=== PATIENT | male | born 1990 | race African-American/Black ===

== ENCOUNTER 2016-12-17 21:49 | Emergency (ER) | payer SELFPAY ==
[~2016-12-17] VITALS: Ht 177.8 cm; Wt 99.3 kg
[2016-12-17 22:10] VITALS: BP 148/79
[2016-12-17 22:20] LABS: BILIRUBIN,URINE NEGATIVE (NEG); GLUCOSE,URINE NEGATIVE (NEG); NITRITE,URINE NEGATIVE (NEG); PROTEIN,URINE NEGATIVE (NEG-TRACE); UROBILINOGEN,URINE 0.2 mg/dL (0.2 mg/dL)
[2016-12-17 22:33] LABS: BACTERIA,URINE 0 /HPF (0-FEW); RBC,URINE 0 /HPF (0-2); SQUAMOUS EPITHELIAL CELL,UR FEW /LPF; WBC,URINE RARE /HPF (0-4)
--- NOTE | 2016-12-17 22:33 | PHYS DOC ---
Past Medical History Past Medical History: No Pertinent History Past Surgical History: No Surgical History Alcohol Use: None Drug Use: None Adult General Chief Complaint Chief Complaint: PAIN ON URINATION HPI HPI Patient is a 26 year old male who presents with complaint of discomfort with urination. Patient states that he has been having symptoms over the past week. Patient describes the sensation as a "tickle" which happens and he is urinating. Patient also states that he has been having the sensation of needing to go more frequently. Patient admits to recent unprotected sexual contact with a single sexual partner. He does state that his sexual partner may have another sexual partners. Patient denies any groin pain, abdominal pain, fever, or nausea. Patient has not had any noticeable penile discharge. Review of Systems Review of Systems Constitutional: Denies fever or chills [] Eyes: Denies change in visual acuity, redness, or eye pain [] HENT: Denies nasal congestion or sore throat [] Respiratory: Denies cough or shortness of breath [] Cardiovascular: Denies chest pain or edema [] GI: Denies abdominal pain, nausea, vomiting, bloody stools or diarrhea [] : Dysuria, denies hematuria or abnormal discharge [] Musculoskeletal: Denies back pain or joint pain [] Integument: Denies rash or skin lesions [] Neurologic: Denies headache, focal weakness or sensory changes [] Allergies Allergies Allergies Coded Allergies Type Severity Reaction Last Updated Verified No Known Drug Allergies 12/17/16 No Physical Exam Physical Exam Constitutional: Well developed, well nourished, no acute distress, non-toxic appearance. [] HENT: Normocephalic, atraumatic, bilateral external ears normal, oropharynx moist, no oral exudates, nose normal. [] Cardiovascular:Heart rate regular rhythm, no murmur [] Lungs & Thorax: Bilateral breath sounds clear to auscultation [] Abdomen: Bowel sounds normal, soft, no tenderness, no masses, no pulsatile masses. : Circumcised, no visible rash, no drainage noted from the urethral meatus, no testicular tenderness, no palpable masses in bilateral inguinal canals [] Skin: Warm, dry, no erythema, no rash. [] Back: No tenderness, no CVA tenderness. [] Extremities: No tenderness, no cyanosis, no clubbing, ROM intact, no edema. [] Neurologic: Alert and oriented X 3, normal motor function, normal sensory function, no focal deficits noted. [] Current Patient Data Vital Signs Vital Signs Date Time Temp Pulse Resp B/P (MAP) Pulse Ox O2 Delivery O2 Flow Rate FiO2 12/17/16 22:10 98.6 70 16 97 Room Air 98.6 Lab Values Laboratory Tests Test 12/17/16 22:00 Urine Collection Type Unknown Urine Color Yellow Urine Clarity Cloudy Urine pH 8.0 Urine Specific [place] 1.025 Urine Protein Negative mg/dL (NEG-TRACE) Urine Glucose (UA) Negative mg/dL (NEG) Urine Ketones (Stick) Negative mg/dL (NEG) Urine Blood Negative (NEG) Urine Nitrite Negative (NEG) Urine Bilirubin Negative (NEG) Urine Urobilinogen Dipstick 0.2 mg/dL (0.2 mg/dL) Urine Leukocyte Esterase Negative (NEG) Urine RBC 0 /HPF (0-2) Urine WBC Rare /HPF (0-4) Urine Squamous Epithelial Cells Few /LPF Urine Amorphous Sediment Present /HPF Urine Bacteria 0 /HPF (0-FEW) EKG EKG Not performed [] Radiology/Procedures Radiology/Procedures Not performed [] Course & Med Decision Making Course & Med Decision Making Pertinent Labs and Imaging studies reviewed. (See chart for details) Patient's UA does not show any evidence of urinary tract infection. Urine concentration was elevated. Advised the patient to increase fluid intake and recommended reevaluation in the next 3 days. Inform the patient that urine cultures would be taken from today's visit and patient will be called with any positive results in the next 3 days. Advised return emergency department for any worsening symptoms. Patient voiced understanding and in agreement with treatment plan. Dragon Disclaimer Dragon Disclaimer This electronic medical record was generated, in whole or in part, using a voice recognition dictation system. Departure Departure Impression: Primary Impression: Dysuria Disposition: 01 HOME, SELF-CARE Condition: IMPROVED Referrals: NO PCP (PCP) Patient Instructions: Dysuria Additional Instructions: Patient increase her fluid intake at home. Follow-up with your primary doctor in 3-4 days of symptoms are not improving. Return to emergency department for any worsening symptoms. DUONG COOPER MD Dec 17, 2016 22:33
== END 2016-12-17 23:32 | disposition home or self-care (01) ==
LOC: ER 21:49
DX: R30.0 Dysuria (principal)
CPT/HCPCS: 81001; 87491; 87591; 99284